=== PATIENT | female | born 1985 | race Caucasian/White ===

== ENCOUNTER → 2019-08-08 13:48 | Outpatient (CLI) | payer OTHER, SELFPAY ==
--- NOTE | 2019-08-08 | DI.US.S_ITS ---
PROCEDURE: US PELVIC COMPLETE INDICATIONS: RECTAL PELVIC PAIN TECHNIQUE: Real-time scanning was performed of the pelvic organs, with image documentation. Additional endovaginal scanning was necessary due to incomplete visualization of the adnexal and endometrial structures by transabdominal scanning. COMPARISON: None. FINDINGS: Transabdominal scanning: Limited scanning through the kidneys shows no hydronephrosis. No pathologic free abdominal or pelvic fluid. Endovaginal scanning: Uterus: Uterus is normal in size at 3.5 x 4.6 x 8.2 cm, anteverted. The endometrium contains a centrally positioned IUD. Ovaries: The right ovary measures 3.6 x 2.0 x 1.6 cm and the left measures 2.9 x 2.7 x 2.8 cm. IMPRESSION: Source of abdominal/pelvic pain is not identified. Centrally positioned IUD within the endometrial canal. Normal-appearing ovaries, no free fluid identified throughout the peritoneal space. Dictated by: Miki Garcia M.D. on 08/08/2019 at 15:46 Approved by: Miki Garcia M.D. on 08/08/2019 at 15:47
--- NOTE | 2019-08-08 | DI.US.S_ITS ---
PROCEDURE: US ABDOMEN COMPLETE INDICATIONS: RECTAL PELVIC PAIN TECHNIQUE: Real-time scanning was performed of the abdominal and retroperitoneal organs, with image documentation. COMPARISON: None. FINDINGS: Liver: Liver is normal in size and homogeneous in echotexture. Gallbladder: The gallbladder appears normal Biliary ducts: Intrahepatic bile ducts are non-dilated. Extrahepatic bile duct caliber measures 3.0 mm. Normal is 6-7 mm or less in diameter, or 10 mm or less post-cholecystectomy. Pancreas: Visualized portions of the pancreas are sonographically normal. Spleen: Spleen is normal in size and homogeneous in echotexture. Kidneys: Kidneys are normal in size and echotexture. Right kidney measures 10.5 cm long; left kidney measures 10.6 cm long. No hydronephrosis or nephrolithiasis. No solid masses. Aorta: Visualized aorta is normal in caliber at less than 3 cm. Iliacs: Not seen due to bowel gas.. IVC: Intrahepatic inferior vena cava is patent. Miscellaneous: No free abdominal fluid. IMPRESSION: Source of abdominal/pelvic pain is not identified. Depending on the clinical status followup by dedicated CT scanning with oral and intravenous contrast through the abdomen and pelvis may be warranted. Dictated by: Miki Garcia M.D. on 08/08/2019 at 15:45 Approved by: Miki Garcia M.D. on 08/08/2019 at 15:46
== END ==
PROVIDERS: PCP Internal Medicine; Visit Provider Internal Medicine
DX: R10.2 Pelvic and perineal pain (principal); K62.89 Other specified diseases of anus and rectum; Z97.5 Presence of (intrauterine) contraceptive device
CPT/HCPCS: 76700; 76830; 76856

== ENCOUNTER → 2020-04-25 11:24 | Outpatient (CLI) | payer OTHER, SELFPAY ==
[2020-04-26 14:22] LABS: COVID19 Sendout Not Detected (Not Detect)
== END ==
PROVIDERS: PCP Internal Medicine; Visit Provider Nurse Practitioner
DX: Z11.59 Encounter for screening for other viral diseases (principal)
CPT/HCPCS: 87635

== ENCOUNTER → 2021-08-01 09:04 | Outpatient (CLI) | payer OTHER, SELFPAY ==
[2021-08-01 09:31] LABS: COVID19 -Nasal RAPID Negative (Negative)
== END ==
PROVIDERS: PCP Internal Medicine; Referring Provider Physician Assistant; Visit Provider Physician Assistant
DX: Z20.822 Contact with and (suspected) exposure to COVID-19 (principal)
CPT/HCPCS: 87635

== ENCOUNTER → 2022-08-26 09:19 | Outpatient (CLI) | payer OTHER, SELFPAY ==
--- NOTE | 2022-08-26 | DI.MG.S_ITS ---
BILATERAL DIGITAL DIAGNOSTIC MAMMOGRAM 3D/2D: 08/26/2022 CLINICAL: Bilateral Lumps. Comparison is made to exam dated: 03/19/2017 mammogram - [facility]. Both breasts are extremely dense, which lowers the sensitivity of mammography (category d />75% glandular tissue). No significant masses, calcifications, or other findings are seen in either breast. IMPRESSION: INCOMPLETE: NEEDS ADDITIONAL IMAGING EVALUATION There is no abnormality seen in either breast to correspond with the area of clinical concern and palpable abnormality in the outer aspect, however, an ultrasound is recommended for further evaluation and is scheduled to immediately follow this examination. Based on the Tyrer Cuzick model (a risk assessment model) the patient's lifetime risk is 12.2% and her 10 year risk is 1.3%. According to the ACR, ACS, and NCCN guidelines, an annual breast MRI exam along with mammogram is recommended if the patient's lifetime risk is 20% or greater. This exam was interpreted at Station ID: [id number]. NOTE: For mammograms, a report in lay terms will be sent to the patient. Approximately 15% of breast malignancies will not be visualized mammographically. In the management of a palpable breast mass, a negative mammogram must not discourage biopsy of a clinically suspicious lesion. Electronically Signed By: Nando Ndiaye M.D. aty/:08/26/2022 10:46:22 ACR BI-RADS Category 0: Incomplete 3340F
--- NOTE | 2022-08-26 09:20 | DI.US.S_ITS ---
ULTRASOUND OF RIGHT BREAST: 08/26/2022 CLINICAL: Palpable right breast lump by physician. Comparison is made to exams dated: 08/26/2022 mammogram, 03/19/2017 ultrasound, and 03/19/2017 mammogram - [facility]. Real-time ultrasound of the right breast was performed. Gardiner scale images of the real-time examination were reviewed. No significant abnormalities were seen sonographically in the right breast. IMPRESSION: NEGATIVE There is no sonographic evidence of malignancy. There are no abnormalities seen in the right breast to correspond with the area of clinical concern and palpable nodularities which likely represent normal fibroglandular tissue, however, recommend clinical follow up for persistent or worsening symptoms, or development of any clinically suspicious findings. Recommend initiating routine screening mammograms at age 40. Findings and recommendations were conveyed to the patient during today's evaluation. This exam was interpreted at Station ID: [id number]. Electronically Signed By: Nando Ndiaye M.D. aty/:08/26/2022 10:47:47 letter sent: Clinical Evaluation Ultrasound BI-RADS: 1 Negative
--- NOTE | 2022-08-26 09:20 | DI.US.S_ITS ---
ULTRASOUND OF LEFT BREAST: 08/26/2022 CLINICAL: Palpable left breast lump by physician. Comparison is made to exams dated: 08/26/2022 mammogram and 03/19/2017 mammogram - [facility]. Color flow and real-time ultrasound of the left breast were performed. Gardiner scale images of the real-time examination were reviewed. No significant abnormalities were seen sonographically in the left breast. IMPRESSION: NEGATIVE There is no sonographic evidence of malignancy. There are no abnormalities seen in the left breast to correspond with the area of clinical concern and palpable nodularities which likely represent normal fibroglandular tissue, however, recommend clinical follow up for persistent or worsening symptoms, or development of any clinically suspicious findings. Recommend initiating routine screening mammograms at age 39. Findings and recommendations were conveyed to the patient during today's evaluation. This exam was interpreted at Station ID: [id number]. Electronically Signed By: Nando Ndiaye M.D. aty/:08/26/2022 10:49:01 letter sent: Clinical Evaluation Ultrasound BI-RADS: 1 Negative
== END ==
PROVIDERS: PCP Internal Medicine; Referring Provider Internal Medicine; Visit Provider Internal Medicine
DX: R92.2 Inconclusive mammogram (principal); N63.10 Unspecified lump in the right breast, unspecified quadrant; N63.20 Unspecified lump in the left breast, unspecified quadrant
CPT/HCPCS: 76642; 77066; G0279

== ENCOUNTER → 2024-06-17 16:16 | Outpatient (CLI) | payer OTHER, SELFPAY ==
--- NOTE | 2024-06-17 16:18 | DI.MG.S_ITS ---
BILATERAL DIGITAL SCREENING MAMMOGRAM 3D/2D WITH CAD: 06/17/2024 CLINICAL: Routine screening. Comparison is made to exams dated: 08/26/2022 mammogram and 03/19/2017 mammogram - [facility]. The breasts are extremely dense, which lowers the sensitivity of mammography (category d />75% glandular tissue). Current study was also evaluated with a Computer Aided Detection (CAD) system. No significant masses, calcifications, or other findings are seen in either breast. There has been no significant interval change. IMPRESSION: NEGATIVE There is no mammographic evidence of malignancy. A 1 year screening mammogram is recommended. Based on the Tyrer Cuzick model (a risk assessment model) the patient's lifetime risk is 18.2% and her 10 year risk is 2.3%. According to the ACR, ACS, and NCCN guidelines, an annual breast MRI exam along with mammogram is recommended if the patient's lifetime risk is 20% or greater. This exam was interpreted at Station ID: [id number]. NOTE: For mammograms, a report in lay terms will be sent to the patient. Approximately 15% of breast malignancies will not be visualized mammographically. In the management of a palpable breast mass, a negative mammogram must not discourage biopsy of a clinically suspicious lesion. Electronically Signed By: Ketty carroll/wicho:06/20/2024 12:30:48 letter sent: Normal Exam ACR BI-RADS Category 1: Negative
== END ==
PROVIDERS: Referring Provider Family Medicine; Visit Provider Family Medicine
DX: Z12.31 Encounter for screening mammogram for malignant neoplasm of breast (principal); R92.343 Mammographic extreme density, bilateral breasts
CPT/HCPCS: 77063; 77067